=== PATIENT | female | born 1980 | race African-American/Black ===

== ENCOUNTER 2017-08-01 18:53 | Emergency (ER) | payer OTHER ==
[~2017-08-01] VITALS: Ht 157.5 cm; Wt 113.4 kg
[2017-08-01 19:15] VITALS: BP 171/120
[2017-08-01] MEDS ORDERED: MOBIC15 MG PO (19:41)
[2017-08-01] MEDS ORDERED: PENICILLIN V P500 MG PO (19:41)
== END 2017-08-01 19:46 | disposition home or self-care (01) ==
LOC: ER 18:53
DX: K02.9 Dental caries, unspecified (principal)

== ENCOUNTER 2017-10-20 18:28 | Emergency (ER) | payer OTHER ==
[~2017-10-20] VITALS: Ht 157.5 cm; Wt 127.0 kg
[~2017-10-20 18:28] MED LIST: MOBIC15 MG PO; PENICILLIN V P500 MG PO
[2017-10-20] MEDS ORDERED: NOHOMEMEDICATIONS (19:28)
[2017-10-20] MEDS ORDERED: NAPROSYN500 MG PO (20:20)
[2017-10-20] MEDS ORDERED: HYDROCODONE-AP1 EAC6 PO (20:20)
[2017-10-20] MEDS ORDERED: PENICILLIN V P500 MG PO (20:20)
== END 2017-10-20 20:40 | disposition home or self-care (01) ==
LOC: ER 18:28
DX: K04.7 Periapical abscess without sinus (principal)